=== PATIENT | female | born 1985 | race American Indian/Alaskan Native ===

== ENCOUNTER 2016-11-30 12:42 | Emergency (ER) | payer SELFPAY ==
[2016-11-30 12:50] VITALS: BP 109/75
[2016-11-30] MEDS ORDERED: CLEOCIN IM ONE (14:40)
[2016-11-30] MEDS ORDERED: NORCO 5/325 PO ONE (14:40)
--- NOTE | 2016-11-30 14:49 | Emergency Department Report ---
ED ENT HPI - General Chief complaint: Dental/Oral Stated complaint: SWOLLEN JAW, ABSCESS Time Seen by Provider: 11/30/16 14:27 Source: patient Mode of arrival: Ambulatory Limitations: No Limitations - History of Present Illness Initial comments: PT c/o Left lower toothache x 1 month. PT states she woke up 2 days ago with Left jaw swelling. PT states she has not had any recent dental work. PT states her last dental visit was over 2 years ago. PT states her pain is 10/10 and it wont let her sleep. MD complaint: tooth pain Onset/Timin -: Gradual, month(s) 1 - dental decay Severity: severe Severity scale (0 -10): 10 Quality: aching, sharp Consistency: constant Improves with: none Worsens with: rest (unable to sleep) Context- Dental: history of dental caries, poor dental care - Related Data Previous Rx's Medication Instructions Recorded Last Taken Type Acetaminophen/Codeine [Tylenol #3] 1 tab PO Q6H PRN #12 tab 11/30/16 Unknown Rx Clindamycin [Clindamycin CAP] 300 mg PO TID 10 Days 11/30/16 Unknown Rx Allergies Allergy/AdvReac Type Severity Reaction Status Date / Time adhesive tape Allergy Rash Verified 11/30/16 12:51 bee venom (honey bee) Allergy Anaphylaxis Verified 11/30/16 12:51 latex Allergy Rash Verified 11/30/16 12:51 tramadol Allergy Rash Verified 11/30/16 12:50 ED Dental HPI - General Chief complaint: Dental/Oral Stated complaint: SWOLLEN JAW, ABSCESS Time Seen by Provider: 11/30/16 14:27 Source: patient Mode of arrival: Ambulatory Limitations: No Limitations - Related Data Previous Rx's Medication Instructions Recorded Last Taken Type Acetaminophen/Codeine [Tylenol #3] 1 tab PO Q6H PRN #12 tab 11/30/16 Unknown Rx Clindamycin [Clindamycin CAP] 300 mg PO TID 10 Days 11/30/16 Unknown Rx Allergies Allergy/AdvReac Type Severity Reaction Status Date / Time adhesive tape Allergy Rash Verified 11/30/16 12:51 bee venom (honey bee) Allergy Anaphylaxis Verified 11/30/16 12:51 latex Allergy Rash Verified 11/30/16 12:51 tramadol Allergy Rash Verified 11/30/16 12:50 ED Review of Systems ROS: Stated complaint: SWOLLEN JAW, ABSCESS Other details as noted in HPI Comment: All other systems reviewed and negative Constitutional: denies: chills, fever ENT: dental pain, other (jaw swelling ) Respiratory: denies: shortness of breath Gastrointestinal: denies: nausea, vomiting Skin: denies: change in color Neurological: headache ED Past Medical Hx - Past Medical History Previous Medical History?: No - Surgical History Additional Surgical History: tonsillectomy,ovary and tube removed 2012 - Social History Smoking Status: Current Every Day Smoker Substance Use Type: None - Medications Home Medications: Home Medications Medication Instructions Recorded Confirmed Last Taken Type Acetaminophen/Codeine [Tylenol #3] 1 tab PO Q6H PRN #12 tab 11/30/16 Unknown Rx Clindamycin [Clindamycin CAP] 300 mg PO TID 10 Days 11/30/16 Unknown Rx ED Physical Exam - General Limitations: No Limitations General appearance: alert, in no apparent distress - Head Head exam: Present: atraumatic, normocephalic, other (swelling to left jaw) - Eye Eye exam: Present: normal appearance, EOMI, conjunctival injection - ENT ENT exam: Present: normal orophraynx, mucous membranes moist - Expanded ENT Exam Expanded Teeth exam: Present: dental caries, dental tenderness # (tooth 17), gingival enlargement, other (no palpable abscess ) Throat exam: Positive: normal inspection - Neck Neck exam: Present: normal inspection, full ROM. Absent: lymphadenopathy - Respiratory Respiratory exam: Present: normal lung sounds bilaterally. Absent: respiratory distress - Cardiovascular Cardiovascular Exam: Present: regular rate, normal rhythm - Back Exam Back exam: Present: normal inspection, full ROM - Neurological Exam Neurological exam: Present: alert, oriented X3, normal gait - Psychiatric Psychiatric exam: Present: normal affect, normal mood - Skin Skin exam: Present: warm, dry, intact, normal color ED Course Vital Signs 11/30/16 11/30/16 12:47 15:03 Temperature 98.5 F Pulse Rate 94 H Respiratory 20 18 Rate Blood Pressure 109/75 O2 Sat by Pulse 100 Oximetry - Reevaluation(s) Reevaluation #1: 11/30/16 14:51 PT aware of dx and plan of care. PT aware she must follow up with a Dentist. - Pulse Oximetry Interpretation Digit-Finger Initial Pulse Oximetry Readin Actions Taken: none ED Medical Decision Making - Differential Diagnosis dental decay, abscess Critical Care Time: No Critical care attestation.: If time is entered above; I have spent that time in minutes in the direct care of this critically ill patient, excluding procedure time. ED Disposition Clinical Impression: Dental abscess Disposition: DISCHARGED TO HOME OR SELFCARE Is pt being admited?: No Does the pt Need Aspirin: No Condition: Stable Instructions: Dental Abscess (ED), Dental Caries (ED), Toothache (ED) Additional Instructions: no driving or ETOH after taking Tylenol #3 Follow up with Dentist in the next 2-3 days Return to ED if worsening or concerns. Prescriptions: Acetaminophen/Codeine [Tylenol #3] 1 tab PO Q6H PRN #12 tab PRN Reason: Pain , Severe (7-10) Clindamycin [Clindamycin CAP] 300 mg PO TID 10 Days Referrals: [facility] [Outside] - 3-5 Days Time of Disposition: 14:52
== END 2016-11-30 17:17 | disposition home or self-care (01) ==
LOC: ED 12:42
DX: K04.7 Periapical abscess without sinus (principal); F17.200 Nicotine dependence, unspecified, uncomplicated; Z91.040 Latex allergy status; Z91.030 Bee allergy status; Z91.048 Other nonmedicinal substance allergy status; Z88.8 Allergy status to other drugs, medicaments and biological substances
CPT/HCPCS: 96372